=== PATIENT | female | born 1970 | race Caucasian/White ===

== ENCOUNTER → 2018-11-08 09:59 | Outpatient (CLI) | payer OTHER, SELFPAY ==
[2018-11-08 11:33] VITALS: BMI 37.1
== END ==
PROVIDERS: PCP Internal Medicine Adolescent Medicine; Visit Provider Internal Medicine Adolescent Medicine
DX: Z71.3 Dietary counseling and surveillance (principal); E11.9 Type 2 diabetes mellitus without complications
CPT/HCPCS: 97802

== ENCOUNTER → 2018-12-26 15:30 | Outpatient (CLI) | payer OTHER, SELFPAY ==
--- NOTE | 2018-12-26 15:37 | XR_ITS ---
PROCEDURE: XR FOOT WT BEARING RT 3V CLINICAL INDICATION: pain Follow-up post reduction dislocation COMPARISON: XR FOOT RT MIN 3V from 12/03/2018 XR FOOT RT 2V from 12/03/2018 FINDINGS: No fracture or dislocation. No lytic or blastic change. There is normal mineralization. The joint spaces are well-preserved. No significant degenerative/arthritic changes. No erosive changes evident. Other findings:There has been interval reduction of the 4th toe dislocation. No obvious fracture. Small calcific density is present along the neck of the talus unchanged IMPRESSION: No acute findings. Dictated by: Emiliano Barahona MD 12/26/2018 16:09 Electronically signed by Emiliano Barahona MD in [place] 12/26/2018 16:09
== END ==
PROVIDERS: PCP Internal Medicine Adolescent Medicine; Visit Provider Podiatrist
DX: S93.104A Unspecified dislocation of right toe(s), initial encounter (principal)
CPT/HCPCS: 73630

== ENCOUNTER → 2019-09-19 09:02 | Outpatient (CLI) | payer OTHER, SELFPAY ==
[2019-09-19 14:24] LABS: Chloride 102 mmol/L (98-107)
[2019-09-19 14:25] LABS: Potassium 4.6 mmoL/L (3.5-5.1); Sodium 138 mmol/L (136-145)
[2019-09-19 14:27] LABS: Alanine Aminotransferase 19 U/L (12-78); Anion Gap 12.6 mEq/L (5-15); Aspartate Amino Transferase 26 U/L (14-36); Blood Urea Nitrogen 16 mg/dl (7-17); Carbon Dioxide 28 mmol/L (22.0-30.0); Estimated Glomerular Filt Rate 77 ml/min (>60); GFR (African American) 93 ML/MIN (>60)
[2019-09-19 14:28] LABS: Albumin Level 3.6 g/dl (3.5-5.0); Albumin/Globulin Ratio 1.3 (1.1-1.8); Alkaline Phosphatase 127 U/L (38-126); Bilirubin,Total 0.6 mg/dl (0.2-1.3); Calcium 9.2 mg/dl (8.4-10.2); Chol/HDL Ratio 2.9 (1-3.5); Cholesterol 225 mg/dl (140-200); Globulin 2.7 g/dL (1.3-3.2); Glucose 122 mg/dl (74-100); HDL Cholesterol 77 mg/dl (40-60); Total Protein,Serum 6.3 g/dl (6.3-8.2); Triglycerides 133 mg/dl (30-150); VLDL Cholesterol 27 mg/dL (0-40)
[2019-09-19 14:39] LABS: Direct LDL Cholesterol 127.64 mg/dL (100-129)
[2019-09-19 14:57] LABS: Thyroid Stimulating Hormone 0.95 uIU/mL (0.465-4.68)
== END ==
PROVIDERS: Visit Provider Nurse Practitioner Family
DX: E11.69 Type 2 diabetes mellitus with other specified complication (principal); E78.5 Hyperlipidemia, unspecified; E03.9 Hypothyroidism, unspecified; Z79.84 Long term (current) use of oral hypoglycemic drugs
CPT/HCPCS: 36415; 80053; 80061; 83036; 84443

== ENCOUNTER → 2019-11-06 12:44 | Outpatient (CLI) | payer OTHER, SELFPAY ==
[2019-11-07 09:24] LABS: Covid-19 Nasal PCR Sendout Lex POSITIVE
== END ==
PROVIDERS: PCP Internal Medicine Adolescent Medicine; Visit Provider Internal Medicine Adolescent Medicine
DX: Z20.828 Contact with and (suspected) exposure to other viral communicable diseases (principal); U07.1 COVID-19
CPT/HCPCS: U0004

== ENCOUNTER → 2020-07-24 17:45 | Outpatient (CLI) | payer OTHER, SELFPAY ==
[2020-07-24 19:07] LABS: Basophils # 0.1 K/mm3 (0-0.2); Basophils % 0.6 % (0.1-2.0); Eosinophils # 0.2 K/mm3 (0.0-0.4); Eosinophils % 2.3 % (0.1-12.0); Hematocrit 35.9 % (37.0-47.0); Hemoglobin 12.1 g/dL (12.2-16.2); Lymphocytes # 3.4 K/mm3 (0.7-4.5); Lymphocytes % 33.1 % (10-50); Mean Corpuscular HGB Conc 33.6 g/dL (31.8-35.4); Mean Corpuscular Hemoglobin 29.9 pg (27.0-31.2); Mean Corpuscular Volume 88.9 fl (81-99); Mean Platelet Volume 9.4 fl (7.4-10.4); Monocytes # 0.5 K/mm3 (0.1-1.0); Platelet Count 470 K/mm3 (142-424); Red Blood Count 4.04 M/mm3 (4.20-5.40); White Blood Count 10.1 K/mm3 (4.8-10.8)
[2020-07-24 19:39] LABS: Chloride 101 mmol/L (98-107); Potassium 4.8 mmoL/L (3.5-5.1); Sodium 137 mmol/L (136-145)
[2020-07-24 19:41] LABS: Alanine Aminotransferase 16 U/L (12-78); Aspartate Amino Transferase 29 U/L (14-36); Blood Urea Nitrogen 13 mg/dl (7-17); Estimated Glomerular Filt Rate 90 ml/min (>60); GFR (African American) 109 ML/MIN (>60)
[2020-07-24 19:42] LABS: Albumin Level 3.9 g/dl (3.5-5.0); Albumin/Globulin Ratio 1.4 (1.1-1.8); Alkaline Phosphatase 134 U/L (38-126); Anion Gap 15.8 mEq/L (5-15); Bilirubin,Total 0.3 mg/dl (0.2-1.3); Carbon Dioxide 25 mmol/L (22.0-30.0); Globulin 2.8 g/dL (1.3-3.2); Glucose 194 mg/dl (74-100); Total Protein,Serum 6.7 g/dl (6.3-8.2)
[2020-07-26 16:10] LABS: EBV Ab VCA, IgM <36.0 U/mL (0.0-35.9); EBV Nuclear Antigen Ab, IgG <18.0 U/mL (0.0-17.9)
[2020-07-29 14:13] LABS: B. henselae IgG Negative titer (Neg:<1:320); B. henselae IgM Negative titer (Neg:<1:100); B. quintana IgG Negative titer (Neg:<1:320); B. quintana IgM Negative titer (Neg:<1:100)
== END ==
LOC: LAB.DROPOF 17:45
PROVIDERS: Visit Provider Internal Medicine Adolescent Medicine
DX: R61 Generalized hyperhidrosis (principal)
CPT/HCPCS: 80053; 85025; 86611; 86664; 86665; 86703; 87385; G0432

== ENCOUNTER → 2020-10-18 08:30 | Outpatient (CLI) | payer OTHER, SELFPAY ==
[2020-10-18 09:44] LABS: Hemoglobin A1C 8.4 % (4.0-6.0)
== END ==
PROVIDERS: Visit Provider Internal Medicine Adolescent Medicine
DX: E11.69 Type 2 diabetes mellitus with other specified complication (principal); Z79.84 Long term (current) use of oral hypoglycemic drugs
CPT/HCPCS: 83036

== ENCOUNTER → 2020-10-31 16:13 | Outpatient (CLI) | payer OTHER, SELFPAY | LOC: SL 16:15 | PROVIDERS: PCP Internal Medicine Adolescent Medicine; Visit Provider Internal Medicine Adolescent Medicine | DX: R40.0 Somnolence (principal); G47.30 Sleep apnea, unspecified | CPT/HCPCS: 95806 ==

== ENCOUNTER → 2020-11-13 14:46 | Outpatient (CLI) | payer OTHER, SELFPAY | PROVIDERS: PCP Internal Medicine Adolescent Medicine; Visit Provider Internal Medicine Adolescent Medicine | DX: Z71.3 Dietary counseling and surveillance (principal); E11.9 Type 2 diabetes mellitus without complications | CPT/HCPCS: 97802 ==

== ENCOUNTER → 2021-06-26 15:16 | Outpatient (CLI) | payer OTHER, SELFPAY ==
--- NOTE | 2021-06-26 15:21 | MM_ITS ---
PROCEDURE INFORMATION: Exam: MG Bilateral Screening 3D Mammography Exam date and time: 06/26/2021 3:33 PM Age: 50 years old Clinical indication: Screening examination TECHNIQUE: Imaging protocol: Bilateral Screening tomosynthesis and 2D mammography including computer-aided detection (CAD) when performed. COMPARISON: 1. MG DMSB DIG MAMM-SCREEN EWA W/CAD 08/21/2016 4:05 PM 2. MG DMDXUR DIG MAMM-DX UNI-RT 12/30/2015 12:48 PM 3. MG DMSB DIG MAMM-SCREEN EWA 06/07/2015 11:09 AM FINDINGS: MAMMOGRAPHY: Breast composition: There are scattered areas of fibroglandular density. Mass: None. Architectural distortion: No new or suspicious architectural distortion. Calcifications: No new or suspicious calcifications are present Asymmetric density: No new or suspicious asymmetric density is present Skin thickening: None. Axillary adenopathy: None. IMPRESSION: No mammographic evidence of malignancy. Recommend annual screening mammography unless otherwise clinically indicated. ASSESSMENT: BI-RADS category 1: Negative
== END ==
PROVIDERS: PCP Internal Medicine Adolescent Medicine; Visit Provider Nurse Practitioner Family
DX: Z12.31 Encounter for screening mammogram for malignant neoplasm of breast (principal)
CPT/HCPCS: 77063; 77067

== ENCOUNTER → 2021-07-29 15:16 | Outpatient (CLI) | payer OTHER, SELFPAY ==
[2021-07-29 16:31] LABS: Urine Pregnancy, HCG Qual. Negative (Negative)
== END ==
LOC: LAB 15:16
PROVIDERS: PCP Internal Medicine Adolescent Medicine; Visit Provider Internal Medicine Gastroenterology
DX: Z01.818 Encounter for other preprocedural examination (principal); Z20.822 Contact with and (suspected) exposure to COVID-19
CPT/HCPCS: 81025; C9803; U0003; U0005

== ENCOUNTER → 2021-09-30 14:34 | Outpatient (CLI) | payer OTHER, SELFPAY ==
--- NOTE | 2021-09-30 14:34 | US_ITS ---
FINAL REPORT CLINICAL HISTORY: pelvic pain right side rule out cyst FINDINGS: Transvaginal sonographic images of the pelvis were obtained. The uterus measures 8.3 x 4.1 x 3.7 cm. Endometrium measures 0.47 cm. The right ovary measures 2.7 x 1.5 x 1.5 cm. The left ovary measures 3.8 x 3.0 x 2.7 cm. There is a 2.8 x 2.1 cm left ovarian cyst. The right ovary is unremarkable. There is a small nabothian cyst at the cervix. IMPRESSION: Left ovarian cyst. Reviewed, Interpreted and Dictated by Braulio Esquivel MD Transcribed by Petra Colon Authenticated and [facility]
== END ==
LOC: RAD 14:34
PROVIDERS: PCP Internal Medicine Adolescent Medicine; Visit Provider Nurse Practitioner Obstetrics & Gynecology
DX: R10.2 Pelvic and perineal pain (principal)
CPT/HCPCS: 76830

== ENCOUNTER → 2022-06-27 08:28 | Outpatient (CLI) | payer OTHER, SELFPAY ==
[2022-06-27 09:07] LABS: Hemoglobin A1C 6.7 % (4.0-6.0)
[2022-06-27 09:10] LABS: Alanine Aminotransferase 20 U/L (12-78); Albumin Level 3.9 g/dl (3.5-5.0); Albumin/Globulin Ratio 1.4 (1.1-1.8); Alkaline Phosphatase 118 U/L (38-126); Anion Gap 14.3 mEq/L (5-15); Aspartate Amino Transferase 24 U/L (14-36); Bilirubin,Total 0.4 mg/dl (0.2-1.3); Blood Urea Nitrogen 14 mg/dl (7-17); Calcium 8.8 mg/dl (8.4-10.2); Carbon Dioxide 27 mmol/L (22.0-30.0); Chloride 100 mmol/L (98-107); Chol/HDL Ratio 1.6 (1-3.5); Cholesterol 135 mg/dl (140-200); Estimated Glomerular Filt Rate 76 ml/min (>60); GFR (African American) 92 ML/MIN (>60); Globulin 2.7 g/dL (1.3-3.2); Glucose 134 mg/dl (74-100); HDL Cholesterol 84 mg/dl (40-60); Potassium 4.3 mmoL/L (3.5-5.1); Sodium 137 mmol/L (136-145); Total Protein,Serum 6.6 g/dl (6.3-8.2); Triglycerides 93 mg/dl (30-150); VLDL Cholesterol 19 mg/dL (0-40)
[2022-06-27 09:20] LABS: Direct LDL Cholesterol 55.79 mg/dL (100-129)
[2022-06-27 09:40] LABS: Thyroid Stimulating Hormone 1.26 uIU/mL (0.465-4.68)
== END ==
LOC: LAB 08:28
PROVIDERS: PCP Internal Medicine Adolescent Medicine; Visit Provider Internal Medicine Adolescent Medicine
DX: E03.9 Hypothyroidism, unspecified (principal); E11.69 Type 2 diabetes mellitus with other specified complication; Z79.84 Long term (current) use of oral hypoglycemic drugs
CPT/HCPCS: 36415; 80053; 80061; 83036; 84443

== ENCOUNTER → 2022-07-03 13:16 | Outpatient (CLI) | payer OTHER, SELFPAY ==
--- NOTE | 2022-07-03 13:16 | MM_ITS ---
PROCEDURE INFORMATION: Exam: MG Bilateral Screening 3D Mammography Exam date and time: 07/03/2022 1:06 PM Age: 51 years old Clinical indication: Screening. Her mother had breast cancer at age 63. TECHNIQUE: Imaging protocol: Bilateral Screening tomosynthesis and 2D mammography including computer-aided detection (CAD) when performed. COMPARISON: 1. MG MM DIG SCREENING MAMM BI W/CAD 06/26/2021 3:33 PM 2. MG DMSB DIG MAMM-SCREEN EWA W/CAD 08/21/2016 4:05 PM 3. MG DMDXUR DIG MAMM-DX UNI-RT 12/30/2015 12:48 PM 4. MG DMSB DIG MAMM-SCREEN EWA 06/07/2015 11:09 AM FINDINGS: MAMMOGRAPHY: Breast composition: There are scattered areas of fibroglandular density. Mass: No suspicious mass. Architectural distortion: None. Calcifications: No suspicious calcifications. Asymmetric density: None. Skin thickening: None. Axillary adenopathy: None. IMPRESSION: No mammographic evidence of malignancy. Annual screening is recommended unless otherwise clinically indicated. ASSESSMENT: BI-RADS Category 1: Negative
== END ==
PROVIDERS: PCP Internal Medicine Adolescent Medicine; Visit Provider Nurse Practitioner Obstetrics & Gynecology
DX: Z12.31 Encounter for screening mammogram for malignant neoplasm of breast (principal)
CPT/HCPCS: 77063; 77067

== ENCOUNTER 2022-08-04 15:00 | Outpatient (RCR) | payer OTHER, SELFPAY ==
--- NOTE | 2022-07-09 16:46 | HMH.PTOPEV ---
PT Outpatient Evaluation Rehab PT Outpatient Evaluation Start: 07/09/22 15:33 Freq: Status: Active Protocol: Document 07/09/22 15:36 PDESEROUX (Rec: 07/09/22 16:46 [email or web address] [id number]) E-signed By Gael Barboza, PT Outpatient Therapy Subjective History Subjective History Pt. is a 51 year old female whom presents to [facility] in [place] for the initial evaluation this date( 07/09/22) w/ c/o subacute and constant R-sided lumbar and RLE P!, numbness/tingling, and weakness of insidious onset for 3 months. Pt. reports having a chronic history of RLE hip P! secondary to prior history of increased osteoarthritis from previous MRI per pt. report. However, pt. reports symptoms have worsened in the hip, but also refer to the 2nd digit and lumbar spine. 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 Pt. also describes symptoms as a cold or wet sensation. Pt. reports saddle paresthesia, but denies bowel/ bladder dysfunction. Pt. reported telling MD about current saddle paresthesia. Pt . denies having any recent diagnostic imaging nor injections for current complaint. Current medication list includes Levothyroxine, Metformin, Prozac, Jardiance, Crestor, and Victoza. PMH includes history of RLE hip OA , Hypothyroidism, DM-II. Chief Complaint Pain,Spasms,Gives out/Unstable ,Paresthesia,Weakness Symptom Type Ache,Dull,Burning,Numbness, Tingling,Shooting Symptoms Relieved By Rest/Positioning,Ice, Prescription Meds Symptoms Aggravated By Sitting,Bending/Stooping,
== END 2022-09-04 10:30 | disposition home or self-care (01) ==
LOC: PT 15:00
PROVIDERS: PCP Internal Medicine Adolescent Medicine; Visit Provider Internal Medicine Adolescent Medicine
DX: M54.41 Lumbago with sciatica, right side (principal)
CPT/HCPCS: 97010; 97012; 97014; 97110; 97140; 97163; G0283

== ENCOUNTER 2022-11-01 09:59 | Emergency (ER) | payer OTHER, SELFPAY ==
[2022-11-01 10:00] VITALS: BP 145/77; PULSE 7; RESP 16; TEMP 36.6; O2SAT 100; BMI 35.9
--- NOTE | 2022-11-01 10:16 | CT_ITS ---
PROCEDURE INFORMATION: Exam: CT Head Without Contrast Exam date and time: 11/01/2022 10:31 AM Age: 51 years old Clinical indication: Injury or trauma; Fall; Concussion/head injury; With loss of consciousness; Loss of consciousness for 30 minutes or less; Patient HX: PT fell down steps hit brick wall on left side of forhead. PT lost consciousness, now experiencing dizziness, nausea; Additional info: Fall, head injury TECHNIQUE: Imaging protocol: Computed tomography of the head without contrast. Radiation optimization: All CT scans at this facility use at least one of these dose optimization techniques: automated exposure control; mA and/or kV adjustment per patient size (includes targeted exams where dose is matched to clinical indication); or iterative reconstruction. REPORTING DATA: Count of CT and Cardiac NM exams in prior 12 months: This patient has received 0 known CTs and 0 known cardiac nuclear medicine studies in the 12 months prior to the current study. COMPARISON: No relevant prior studies available. FINDINGS: Brain: No hemorrhage. Unremarkable white matter. No mass effect. Cerebral ventricles: No ventriculomegaly. Paranasal sinuses: There is mucoperiosteal reaction involving the right maxillary sinus. Mastoid air cells: Visualized mastoid air cells are well aerated. Bones/joints: No acute fracture. Soft tissues: There is a small left frontal soft tissue contusion. IMPRESSION: No acute intracranial abnormality.
--- NOTE | 2022-11-01 10:17 | HMH.EDGENADL ---
Discharge Plan Disposition Patient Disposition: Home, Self-Care Prescriptions Prescriptions: New ondansetron 4 mg tablet,disintegrating 4 mg PO Q6H PRN (Reason: nausea and vomiting) 5 Days Qty: 20 0RF No Action rosuvastatin 20 mg tablet 20 mg PO DAILY levothyroxine 75 mcg tablet 75 mcg PO DAILY 60 Days Qty: 60 Patient Comments: TAKE 1 TABLET BY MOUTH EVERY DAY metformin 500 mg tablet 500 mg PO methylsulfonylmethane 1,000 mg capsule 1,000 mg PO BID methylprednisolone 4 mg tablets,dose pack 4 mg PO PER PKG DIR Qty: 21 0RF Lo Loestrin Fe 1 mg-10 mcg (24)/10 mcg (2) tablet 1 tab PO DAILY Qty: 28 11RF fluoxetine 40 MG capsule 40 mg PO DAILY liraglutide 0.6 MG/0.1 ML pen injector 0.12 mg SQ DAILY empagliflozin 10 MG tablet 10 mg PO DAILY Referrals Follow up/Referrals: Elias Nolasco MD [Primary Care Provider] - See instructions Activity Restrictions/Add. Instructions Additional Instructions/Restrictions: No evidence of an intracranial injury that would require any type of intervention your CAT scan was normal. Please expect normal postconcussive symptoms which could include nausea vomiting headache difficulty concentration and some amnesia. Take Tylenol as needed for your symptoms a prescription of Zofran has been given to you as well. Regarding return to work I would take 24 to 48 hours off of no significant stimulation followed by returning to minimal activity and he can return to full activity only moving to each neck step after being fully asymptomatic this could take several weeks. Additionally there is such thing is postconcussive syndrome which is where symptoms could last even longer please follow-up the primary care doctor within a few days to continue discuss when to return to work. Clinical Impressions Clinical Impression: Concussion Discharge ED Provider: John Simon General Adult HPI General Chief complaint: Fall Stated complaint: AO 8:30 hit head villarreal Time Seen by Provider: 11/01/22 10:11 Mode of Arrival: Ambulatory Limitations: No Limitations Description of Symptoms (Recalled from ER Triage Doc. by RN): pt reports fall this morning approx 0830 down approx 4 steps. Pt reports hits her head on door frame. Pt reports +LOC. Bruising and raised area to L side of forehead with abrasion noted. Pt reports headache, nausea and some blurry vision. History of Present Illness HPI narrative: Patient is a 51-year-old female here with a head injury. She states that she was walking down the stairs and felt herself falling but the next thing she remembers she was on the ground her dog was licking her head. Therefore there is a positive loss of consciousness. She does not recall whether not she was having any lightheadedness shortness of breath or any other preceding symptoms but does not believe she was. She now feels back to baseline other than a head injury and feeling little bit funny. She has no history of recent concussions. She is not on any anticoagulants or any antiplatelet agents. She denies any neck pain chest abdomen pelvis injuries or any long bone injuries. Related Data Home Medications Medication Instructions Recorded Confirmed levothyroxine 75 mcg tablet 75 mcg PO DAILY thyroid 60 days 05/04/18 04/13/22 #60 tabs rosuvastatin 20 mg tablet 20 mg PO DAILY Cholesterol 09/19/19 04/13/22 empagliflozin 10 mg tablet 10 mg PO DAILY Diabetes 07/29/21 04/13/22 fluoxetine 40 mg capsule 40 mg PO DAILY Anxiety 07/29/21 04/13/22 liraglutide 0.6 mg/0.1 mL (18 mg/3 0.12 mg SQ DAILY Diabetes 07/29/21 04/13/22 mL) subcutaneous pen injector metformin 500 mg tablet 500 mg PO 02/24/22 04/13/22 methylsulfonylmethane 1,000 mg 1,000 mg PO BID 02/24/22 04/13/22 capsule Previous Rx's Medication Instructions Recorded norethindrone 1 mg-ethinyl 1 tab PO DAILY #28 tabs 11/26/21 estradiol 10 mcg (24)-iron 10 mcg(2) tablet ([place]
--- NOTE | 2022-11-01 11:07 | PC.NURSE ---
Dr. Simon at [facility] for pt eval
[2022-11-01 11:16] VITALS: BP 133/70; PULSE 67; RESP 17; TEMP 36.6; O2SAT 98
== END 2022-11-01 11:19 | disposition home or self-care (01) ==
PROVIDERS: Emergency Provider Student in an Organized Health Care Education/Training Program; PCP Internal Medicine Adolescent Medicine
DX: S06.0X9A Concussion with loss of consciousness of unspecified duration, initial encounter (principal); S00.93XA Contusion of unspecified part of head, initial encounter; W10.8XXA Fall (on) (from) other stairs and steps, initial encounter
CPT/HCPCS: 70450; 99284

== ENCOUNTER 2023-06-11 21:26 | Emergency (ER) | payer BC, SELFPAY ==
[2023-06-11 21:33] VITALS: BP 161/99; PULSE 84; RESP 16; TEMP 36.7; O2SAT 98; BMI 35.2
--- NOTE | 2023-06-11 21:43 | HMH.EDGENADL ---
Discharge Plan Disposition Patient Disposition: Home, Self-Care Prescriptions Prescriptions: New amoxicillin-pot clavulanate 875-125 mg tablet 1 tab PO BID Qty: 20 0RF No Action rosuvastatin 20 mg tablet 20 mg PO DAILY levothyroxine 75 mcg tablet 75 mcg PO DAILY 60 Days Qty: 60 Patient Comments: TAKE 1 TABLET BY MOUTH EVERY DAY metformin 500 mg tablet 500 mg PO BID methylsulfonylmethane 1,000 mg capsule 1,000 mg PO BID methylprednisolone 4 mg tablets,dose pack 4 mg PO PER PKG DIR Qty: 21 0RF Lo Loestrin Fe 1 mg-10 mcg (24)/10 mcg (2) tablet See Rx Instructions .ROUTE .COMPLEX Qty: 28 10RF Dose Instruction: TAKE 1 TABLET ORALLY DAILY Rx Instructions: TAKE 1 TABLET ORALLY DAILY ondansetron 4 mg tablet,disintegrating 4 mg PO Q6H PRN (Reason: nausea and vomiting) 5 Days Qty: 20 0RF fluoxetine 40 MG capsule 40 mg PO DAILY liraglutide 0.6 MG/0.1 ML pen injector 0.12 mg SQ DAILY empagliflozin 10 MG tablet 10 mg PO DAILY Referrals Follow up/Referrals: Elias Nolasco MD [Primary Care Provider] - See instructions Activity Restrictions/Add. Instructions Additional Instructions/Restrictions: Call your family doctor to establish care for this visit to the emergency department and schedule follow-up within 48 hours to ensure improvement. If you have any worsening of your condition or any other concerning signs or symptoms, return to the emergency department or your primary care doctor for further evaluation. Augmentin twice daily for 10 days Clinical Impressions Clinical Impression: Dog bite Instructions Patient Instructions: Animal Bites Discharge ED Provider: Avinash Fountain General Adult HPI General Chief complaint: Animal Bite Stated complaint: AO 06/09, dog bite on right hand Time Seen by Provider: 06/11/23 21:31 Mode of Arrival: Family Vehicle Source of Information: Patient Limitations: No Limitations Description of Symptoms (Recalled from ER Triage Doc. by RN): 52 yo female presents with CC of dog bite. States she was bit by her dog yesterday and result was one puncture wound to inner palm. Cleaned with soap and water, but noticed redness around area and extending into wrist area. Complains of soreness, but otherwise not painful. No purulent drainage present. Slight edema to area. History of Present Illness HPI narrative: Please note that above description of symptoms, in this electronic medical record under categorization of recalled from ER triage doctor by RN are reflective of an initial nursing assessment, however, is not reflective of my full history and physical exam that was personally taken and clarified. Consequentially, this preceding description of symptoms, which may include the patient's categorized chief complaint in the EMR, do not reflect my personal clinical impression, and the ultimate description of history of present illness and patient stated complaints should be deferred to this section of the note. Unless stated otherwise or congruent with this section of the note, additional signs, symptoms, or incongruence should be interpreted as inaccurate with my clinical impression. Related Data Home Medications Medication Instructions Recorded Confirmed levothyroxine 75 mcg tablet 75 mcg PO DAILY thyroid 60 days 05/04/18 06/11/23 #60 tabs rosuvastatin 20 mg tablet 20 mg PO DAILY Cholesterol 09/19/19 06/11/23 empagliflozin 10 mg tablet 10 mg PO DAILY Diabetes 07/29/21 06/11/23 fluoxetine 40 mg capsule 40 mg PO DAILY Anxiety 07/29/21 06/11/23 liraglutide 0.6 mg/0.1 mL (18 mg/3 0.12 mg SQ DAILY Diabetes 07/29/21 06/11/23 mL) subcutaneous pen injector metformin 500 mg tablet 500 mg PO BID 02/24/22 06/11/23 methylsulfonylmethane 1,000 mg 1,000 mg PO BID 02/24/22 06/11/23 capsule Previous Rx's Medication Instructions Recorded methylprednisolone 4 mg tablets in 4 mg PO PER PKG DIR Pain, swelling 02/24/22 a dose pack #21 tabs ondansetron 4 mg disintegrating 4 mg PO Q6H PRN nausea and 11/01/22 tablet vomiting 5 days #20 tabs norethindrone 1 mg-ethinyl See Rx Instructions .Route 11/19/22 estradiol 10 mcg (24)-iron 10 .COMPLEX #28 tabs mcg(2) tablet (Lo Loestrin Fe) amoxicillin 875 mg-potassium 1 tab PO BID #20 tabs 06/11/23 clavulanate 125 mg tablet Allergies Allergy/AdvReac Type Severity Reaction Status Date / Time adhesive tape [facility]13[facility]22 13[facility] Disclaimer: The information contained in this section may have been updated after the patient was seen, as this information can be updated by other users. Social History Smoking Status: Unknown if ever smoked second hand exposure: No alcohol intake: current alcohol intake frequency: holidays/special occasions only substance use type: denies use current occupational status: employed Travel in the last 8 weeks: None household members: family housing: house current occupation: Technical Services Assistant current occupational exposures/hazards: No caffeine: Yes ROS Obtained: Yes All systems reviewed & no additional complaints except as documented Physical Exam General General appearance: alert and in no apparent distress Head Head exam: atraumatic and normocephalic Eye Eye exam: Present normal appearance, PERRL and EOMI ENT ENT exam: Present mucous membranes moist Neck Neck exam: Present normal inspection, full ROM and trachea midline Respiratory Respiratory exam: Absent respiratory distress, wheezes, stridor, accessory muscle use or prolonged expiratory phase Cardiovascular Cardiovascular exam: Present normal rhythm Abdominal Exam Abdominal exam: Present soft; Absent distention, tenderness, guarding, rebound or rigidity Extremities Exam Extremities exam: Present other (Puncture wound right thenar eminence with erythema spreading circumferentially and linearly up ventral aspect of right upper extremity); Absent edema Neurological Exam Neurological exam: Present alert, oriented X3, CN II-XII intact and normal gait; Absent motor sensory deficit Skin Skin exam: Present warm and dry; Absent diaphoresis or erythema Medical Decision Making Medical Records Medical records reviewed: Yes I reviewed the patient's medical records. Shan Inquiry Pt receiving controlled substance: No Shan was queried for this patient: No Vital Signs: 06/11/23 21:33 06/11/23 21:47 Temperature 98.1 F 98.0 F Temperature Source Oral Oral Pulse Rate 89 Pulse Rate [Right Brachial] 84 Respiratory Rate 16 16 Blood Pressure 169/99 H Blood Pressure [right wrist] 161/99 H Blood Pressure Mean [right wrist] 119 Blood Pressure Source Automatic Cuff Blood Pressure Source [right wrist] Automatic Cuff Blood Pressure Position Sitting Blood Pressure Position [right wrist] Sitting 02 Sat by Pulse Oximetry 98 Oxygen Delivery Method Room Air Room Air Orders (Tests/Meds): ED MEDICATIONS Discontinued Medications Generic Name Dose Route Start Last Admin Trade Name Freq PRN Reason Stop Dose Admin Amoxicillin/Clavulanate Potassium 1 each 06/11/23 21:42 06/11/23 21:44 Amoxicillin/Clavulanate Potassium 875/125mg Tablet PO 06/11/23 21:43 1 each ONCE ONE Administration Medical Decision Narrative: 52-year-old female no relevant medical history presenting with dog bite to thenar eminence right upper extremity. Happened yesterday. She washed it out really well, did not have complications initially, but is now having redness streaking around the area and upper arm. No fevers or chills, or any other systemic signs or symptoms. Last tetanus was in 2021. History was obtained via conversation with patient. On arrival, patient hemodynamically stable, alert, oriented x4, appropriate, GCS 15, moving all extremities spontaneously, pupils equal and reactive to light. Full physical exam performed and significant for thenar eminence erythema with puncture wound. She does have erythema extending up right upper extremity as well. Range of motion intact and nonpainful. Differential includes cellulitis, lymphangitis, bacteremia, among others Patient was given Augmentin for symptomatic management and correction of underlying abnormalities. No foreign body palpated, x-ray of right upper extremity was considered, but not deemed necessary at this time. Because patient well-appearing with no systemic signs or symptoms, deemed appropriate for outpatient management with Augmentin with close return precautions. Because patient at baseline without signs or symptoms of clinical decompensation, deemed appropriate for discharge. Results were relayed to patient who voiced understanding and were agreeable to outpatient management and follow up. I discussed my clinical impression with patient and answered all questions. At this time, the evidence for any other entities in the differential is insufficient to warrant any further testing or ED observation. This was explained as well. Advisory was given that persistent or worsening symptoms require further evaluation. I confirmed the understanding of this discussion. Critical Care Critical Care Time Critical Care Time: No
[2023-06-11] MEDS: AMOXICILLIN/CLAVULANATE POTASSIUM 875/125MG TABLET 1 EACH PO (21:44)
[2023-06-11 21:47] VITALS: BP 169/99; PULSE 89; RESP 16; TEMP 36.7; O2SAT 98
== END 2023-06-11 21:51 | disposition home or self-care (01) ==
PROVIDERS: Emergency Provider Emergency Medicine; PCP Internal Medicine Adolescent Medicine
DX: S61.431A Puncture wound without foreign body of right hand, initial encounter (principal); L53.9 Erythematous condition, unspecified; W54.0XXA Bitten by dog, initial encounter
CPT/HCPCS: 99283

== ENCOUNTER 2023-07-22 12:49 | Outpatient (CLI) | payer BC, SELFPAY ==
--- NOTE | 2023-07-22 12:49 | MM_ITS ---
PROCEDURE INFORMATION: Exam: MG Bilateral Screening 3D Mammography Exam date and time: 07/22/2023 12:51 PM Age: 52 years old Clinical indication: Screening examination TECHNIQUE: Imaging protocol: Bilateral Screening tomosynthesis and 2D mammography including computer-aided detection (CAD) when performed. COMPARISON: 1. MG MM DIG SCREENING MAMM BI W/CAD 07/03/2022 1:06 PM 2. MG MM DIG SCREENING MAMM BI W/CAD 06/26/2021 3:33 PM FINDINGS: MAMMOGRAPHY: Breast composition: There are scattered areas of fibroglandular density. Mass: None. Architectural distortion: None. Calcifications: No suspicious calcifications. Asymmetric density: None. Skin thickening: None. Axillary adenopathy: None. IMPRESSION: No mammographic evidence of malignancy. Annual screening is recommended unless otherwise clinically indicated. ASSESSMENT: BI-RADS Category 1: Negative
== END 2023-07-22 23:59 | disposition home or self-care (01) ==
LOC: RAD 12:49
PROVIDERS: PCP Internal Medicine Adolescent Medicine; Visit Provider Nurse Practitioner Obstetrics & Gynecology
DX: Z12.31 Encounter for screening mammogram for malignant neoplasm of breast (principal)
CPT/HCPCS: 77063; 77067

== ENCOUNTER 2023-10-04 14:00 | Outpatient (RCR) | payer OTHER, SELFPAY ==
--- NOTE | 2023-08-03 17:14 | HMH.PTOPEV ---
PT Outpatient Evaluation Rehab PT Outpatient Evaluation Start: 08/03/23 16:02 Freq: Status: Active Protocol: Document 08/03/23 16:03 PDESEROUX (Rec: 08/03/23 17:14 [email or web address] [id number]) E-signed By Gael Barboza, PT Outpatient Therapy Subjective History Subjective History Pt. is a 52 year old female who presents to [facility] in [place] for the initial evaluation this date(08/03/23) w/ c/o subacute and constant RUE shldr. P!, stiffness, and weakness of traumatic onset in May 2023 while at work that has progressively been getting worse in the last couple of weeks. Pt. reports she slipped while descending the steps secondary to the rain while getting off of the back of the ambulance and reached out to grab the cargo net to keep herself upright when it jerked her shoulder back. Pt. reports she rested her shoulder best she could where it got a little better, but states symptoms have worsened in the last few weeks because she's been doing more at work. Pt. 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 Pt. denies having any recent diagnostic imaging nor injections for current complaint. Pt. reports having no symptom relief w/ prescribed Voltaren. Pt. reports having symptom relief w/ rest. Pt. reports having difficulty reaching out, donning/doffing shirt, and lifting secondary to an increase in RUE shldr. P!. Current medications include Voltaren, Metformin, Jardiance , and Mounjaro. PMH includes DM-II and Hypothyroidism. New diagnosis of cancer in past 12 No months? Chief Complaint Pain,Spasms,Stiff,Gives out/ Unstable,Weakness Symptom Type Ache,Sharp,Dull,Stabbing, Burning,Shooting,Other Symptoms Relieved By Rest/Positioning,Ice,Brace/ Support Symptoms Aggravated By Physical Activity,Lifting Prior Functional Limitations None Current Functional Limitations Reaching,Lifting,Housework, Dressing,Desk Work/Reading, Driving,Sleeping,Recreation Activity Symptom Description Constant but Variable,Activity Dependent Level of pain today (0-10) 2 Pain scale - at its best (0-10) 1 Pain scale - at its worst (0-10) 6 Shoulder/Elbow Eval Shoulder Objective Measurements Palpation Tenderness tenderness shoulder exam standard right tenderness over the bicipital tendon right shoulder exam standard tenderness over the SA bursa shoulder right exam standard Shoulder Palpation Findings Tenderness Shoulder Palpation Overall Comment grade 4 +TTP above, ER's/IR's/ greater tubercle/lesser tubercle Posture Shoulder Posture Sitting Position (R) Rounded,(R) Forward Shoulder Posture Standing Position (R) Rounded,(R) Forward Scapula Posture Sitting Position (R) Protracted Scapular Posture Standing Position (R) Protracted Flexibilty Deficits Latissmus Dorsi Muscle Length (R) Severe Tightness Pectoralis Minor Muscle Length (R) Severe Tightness Pectoralis Major Muscle Length (R) Severe Tightness Shoulder External Rotators Muscle Length (R) Severe Tightness Shoulder Internal Rotators Muscle Length (R) Severe Tightness Supraspinatus Muscle Length (R) Severe Tightness Teres Major Muscle Length (R) Severe Tightness Upper Trapezius Muscle Length (R) Severe Tightness Levaetor Scapulae Muscle Length (R) Severe Tightness Shoulder ROM Right Shoulder ROM Limitations Soft Tissue Tightness,Muscle Weakness,Pain Shoulder Abduction Active Range of 83 Motion (degrees) Shoulder Abduction Passive Range of 101 Motion (degrees) Shoulder Flexion Active Range of Motion 97 (degrees) Query Text: Shoulder Flexion Passive Range of Motion 103 (degrees) Shoulder External Rotation Active Range 27 of Motion (degrees) Shoulder External Rotation Passive Range 33 of Motion (degrees) Shoulder Internal Rotation Active Range 55 of Motion (degrees) Shoulder Internal Rotation Passive Range 61 of Motion (degrees) Shoulder Extension Active Range of 55 Motion (degrees) pain with active ROM shoulder exam right standard pain with passive ROM shoulder exam right standard decreased ROM shoulder exam standard right Shoulder MMT Shoulder Abduction Strength Grade 3+ Fair+ Shoulder Extension Strength Grade 4 Good Shoulder Flexion Strength Grade 3+ Fair+ Shoulder External Rotation Strength 3+ Fair+ Grade Shoulder Internal Rotation Strength 4- Good- Grade Shoulder Strength Patient Testing Sitting Position Shoulder Muscle Tone Shoulder Flexor Muscle Tone Description Severe Hypertonicity Shoulder Extensors Muscle Tone Severe Hypertonicity Description Shoulder Lateral Rotator Muscle Tone Severe Hypertonicity Description Shoulder Special Tests Shoulder Drop Arm Test Positive Right Shoulder Anterior Apprehension Test Positive Right Shoulder Speed's Sign Test Positive Right Elbow Objective Measurements Accessory Movements Right Shoulder Girdle Accessory Movements that Glenohumeral [place], Elicit Symptoms Glenohumeral [place], Glenohumeral Inf [place] Outpatient Therapy Assessment Impairments Problems/Impairmments Palpation Tenderness,Impaired Range of Motion,Impaired Strength,Impaired Driving, Impaired Lifting,Impaired Dressing,Impaired Shower/ Bathing,Impaired Household Care,Impaired Recreational Activities,Impaired Work Activities,Impaired Desk/ Computer Activities,Subjective C/O Pain,Impaired Self Care/ Self Management Prognosis Rehab Potential Good Comment w/ HEP compliancy Clinical Impression Consistent with Diagnosis Yes Consistent with RUE shldr. RC strain Short Term Goals Number of Weeks 2 Decreased Palpation Tenderness Yes: grade 1-2 +TTP to TTP assessment above Decrease Subjective C/O Pain Yes: worse:06/17 Patient to be Ind w/ HEP Yes Shelter Goals Number of Weeks 4-6 Decreased Palpation Tenderness Yes: grade 1 +TTP to TTP assessment above Increase Range of Motion Yes: RUE shldr. A/PROM WNL grossly Increase Strength Yes: 4+ to 06/12 RUE shldr. MMT scores grossly Increase Ability to Drive/Ride in Car Yes: Pt. will be able to operate steering wheel/seat belt w/ RUE w/o difficulty Improve Ability to Dress Self Yes: Pt. will be able to don/ doff shirt w/o difficulty Improve Ability to Shower/Bathe Self Yes Improve Tolerance to Work Activities Yes: Pt. will return to full occupational duty responsibility w/o difficulty Improve Tolerance to Desk/Computer Yes: Pt. will be able to write Activities w/ RUE w/o difficulty Improve Quick Dash Score Yes Decrease Subjective C/O Pain Yes: worse:-03/20 Patient to be Ind w/ Advanced HEP Yes Outpatient Therapy Plan of Care Treatment Plan May Include Therapeutic Exercise Including Home Yes Exercise Program Manual Therapy Techniques Yes Neuromuscular Re-education Yes Therapeutic Activities to Return to Yes Previous Functional/Work Level ADL/Self Care Education Yes Dry Needling Yes Thermal Modalities Yes Electrical Stimulation Yes Ultrasound/Phonophoresis Yes Iontophoresis Yes Vasopneumatic Compression Pump Yes Massage Yes Eval/Re-Eval Yes Frequency Times per week 2-3 Duration Number of Weeks 4-6 Addendums This patient is a candidate for social No or vocational rehab? Patient/Guardian verbally acknowledges Yes understanding of treatment program and consents to further treatment? Patient/Guardian verbally acknowledges Yes understanding of diagnosis, prognosis and goals for treatment? Eval Complexity PT Charges 50091 - Low Complexity PHYSICIAN CERTIFICATION: I certify the specified therapy services for Lucía Lenz [place] are required, authorized, and reviewed every 30 days.
== END 2023-10-06 08:50 | disposition home or self-care (01) ==
LOC: PT 14:00
PROVIDERS: Visit Provider Internal Medicine Adolescent Medicine
DX: M75.21 Bicipital tendinitis, right shoulder (principal)
CPT/HCPCS: 97010; 97014; 97110; 97140; 97163; 97164; 97530; G0283

== ENCOUNTER 2024-02-29 08:58 | Outpatient (CLI) | payer BC, SELFPAY ==
[2024-02-29 09:37] LABS: Basophils # 0.1 K/mm3 (0-0.2); Basophils % 1.5 % (0.1-2.0); Eosinophils # 0.2 K/mm3 (0.0-0.4); Eosinophils % 2.3 % (0.1-12.0); Hematocrit 39.9 % (37.0-47.0); Hemoglobin 13.2 g/dL (12.2-16.2); Lymphocytes # 3.2 K/mm3 (0.7-4.5); Mean Corpuscular HGB Conc 33.1 g/dL (31.8-35.4); Mean Corpuscular Hemoglobin 31.1 pg (27.0-31.2); Mean Corpuscular Volume 94.1 fl (81-99); Monocytes # 0.5 K/mm3 (0.1-1.0); Monocytes % 6.7 % (1.7-9.3); Neutrophils # 3.3 K/mm3 (1.8-7.8); Neutrophils % 45.2 % (37.0-80.0); Platelet Count 394 K/mm3 (142-424); Red Blood Count 4.24 M/mm3 (4.20-5.40); White Blood Count 7.3 K/mm3 (4.8-10.8)
[2024-02-29 09:48] LABS: Albumin Level 3.8 g/dl (3.5-5.0); Chloride 105 mmol/L (98-107); Potassium 4.1 mmoL/L (3.5-5.1); Sodium 135 mmol/L (136-145)
[2024-02-29 09:50] LABS: Alanine Aminotransferase 19 U/L (12-78); Anion Gap 9.1 mEq/L (5-15); Aspartate Amino Transferase 21 U/L (14-36); Blood Urea Nitrogen 13 mg/dl (7-17); Carbon Dioxide 25 mmol/L (22.0-30.0); Estimated Glomerular Filt Rate 66 ml/min (>60); GFR (African American) 80 ML/MIN (>60)
[2024-02-29 09:51] LABS: Albumin/Globulin Ratio 1.4 (1.1-1.8); Alkaline Phosphatase 108 U/L (38-126); Bilirubin,Total 0.4 mg/dl (0.2-1.3); Calcium 9.1 mg/dl (8.4-10.2); Chol/HDL Ratio 4.1 (1-3.5); Cholesterol 236 mg/dl (140-200); Globulin 2.7 g/dL (1.3-3.2); Glucose 103 mg/dl (74-100); HDL Cholesterol 58 mg/dl (40-60); Total Protein,Serum 6.5 g/dl (6.3-8.2); Triglycerides 122 mg/dl (30-150); VLDL Cholesterol 24 mg/dL (0-40)
[2024-02-29 09:54] LABS: Creatinine,Urine Random 136 mg/dL (Not Estab.); Microalbumin < 6.000 mg/L (0-16.7)
[2024-02-29 10:08] LABS: 25-OH Vitamin D, Total 38.3 ng/mL (30-100)
[2024-02-29 10:22] LABS: Thyroid Stimulating Hormone 1.41 uIU/mL (0.465-4.68)
[2024-02-29 11:14] LABS: Direct LDL Cholesterol 146.83 mg/dL (100-129)
[2024-02-29 11:54] LABS: Vitamin B12 900 pg/mL (239-931)
== END 2024-02-29 23:59 | disposition home or self-care (01) ==
LOC: LAB 09:00
PROVIDERS: PCP Internal Medicine Adolescent Medicine; Visit Provider Nurse Practitioner Family
DX: Z00.00 Encounter for general adult medical examination without abnormal findings (principal); E11.69 Type 2 diabetes mellitus with other specified complication; E03.9 Hypothyroidism, unspecified; E53.8 Deficiency of other specified B group vitamins; E55.9 Vitamin D deficiency, unspecified
CPT/HCPCS: 36415; 80053; 80061; 82043; 82306; 82570; 82607; 83036; 84443; 85025

== ENCOUNTER 2024-09-14 12:45 | Outpatient (CLI) | payer BC, SELFPAY ==
--- OUTSIDE RECORDS SUMMARY | 2024-09-14 12:49 | XMS_ITS | Clinical Summary ---
Author Organization [facility] yste Address [address] [place] [address] Care Team Providers Care Ore Puncher Name Role Phone Unavailable Primary Care Provider Unavailabl e Social History Tobacco Use Types Packs/Day Years Used Date Smoking Tobacco: Never Assessed Abuse Screen Answer Date Recorded Unsafe at Home or Work/School Not on file Feels Threatened by Someone? Not on file 11/2022 Does Anyone Keep You from Co ntacting Others or Doint Things Outside the Home? Not on file 11/17/2022 Physical Sign of Abuse Present Not on file 1 Housing Stability Answer Date Recorded Current Living Arrangements Not on file 11/08 Potentially Unsafe Housing Conditions Not on bill e 11/17/2022 Family and Community Support Answer Jose Enrique e Recorded Help with Day-to-Day Activities Not on file 11/17/2022 Lonely or Isolated Not on file 11/17/2022 Employment Answer Date Recorded Do you want help finding or keeping work or a cl b? Not on file 11/17/2022 Disabilities Answer Date Recorded Concentrating, Remembering, or Making Decisions Difficulty Not on file 11/17/2022 Doing Errands Independently Difficulty Not on fi le 11/17/2022 Education Answer Date Recorded Help with school or training? Not on file Preferred Language Not on file 11/17/2022 Comments Unknown Sex and Gender Information Value Date Recorded Sex Assigned at Not on file Legal Sex Female 1:40 PM EDT Gender Identity Not on file Sexual Orientation Not on file Plan of Treatment Health Maintenance Due Date Last Done Comments ANNUAL PHYSICAL 1972 Annual Gynecologic Pelvic and Breast Exam 1972 HEPATITIS C SCREENING 1972 TDAP/TD VACCINES (1 - Tdap) 11/06/1991 MAMMOGRAM 2012 COLOGUARD 2017 COLON CANCER SCREENING 5 YEAR SIGMOIDOSCOPY 2017 COLONOSCOPY [address] CANCER SCREENING 2017 CT COLONOGRAPHY 2017 FECAL OCCULT BLOOD TEST 2017 FIT Testing (1 year) 2017 Pneumococcal Vaccine 50+ (1 of 1 - PCV) 2022 ZOSTER VACCINE (1 of 2) 2022 COVID-19 Vaccine (1 - 2023- season) 2023 INFLUENZA VACCINE 11/08/2024
[2024-09-14 13:31] LABS: Albumin Level 4.0 g/dl (3.5-5.0); Chloride 103 mmol/L (98-107); Potassium 4.4 mmoL/L (3.5-5.1); Sodium 134 mmol/L (136-145)
[2024-09-14 13:33] LABS: Blood Urea Nitrogen 12 mg/dl (7-17); Creatinine,Serum 0.80 mg/dl (0.52-1.04); Estimated Glomerular Filt Rate 76 ml/min (>60); GFR (African American) 92 ML/MIN (>60)
[2024-09-14 13:34] LABS: Alanine Aminotransferase 13 U/L (12-78); Albumin/Globulin Ratio 1.5 (1.1-1.8); Alkaline Phosphatase 114 U/L (38-126); Anion Gap 10.4 mEq/L (5-15); Aspartate Amino Transferase 18 U/L (14-36); Bilirubin,Total 0.6 mg/dl (0.2-1.3); Calcium 9.3 mg/dl (8.4-10.2); Carbon Dioxide 25 mmol/L (22.0-30.0); Cholesterol 170 mg/dl (140-200); Globulin 2.7 g/dL (1.3-3.2); Glucose 117 mg/dl (74-100); HDL Cholesterol 69 mg/dl (40-60); Total Protein,Serum 6.7 g/dl (6.3-8.2); Triglycerides 95 mg/dl (30-150)
[2024-09-14 14:34] LABS: Hemoglobin A1C 6.2 % (4.0-6.0)
== END 2024-09-14 23:59 | disposition home or self-care (01) ==
PROVIDERS: PCP Nurse Practitioner Family; Visit Provider Nurse Practitioner Family
DX: E11.69 Type 2 diabetes mellitus with other specified complication (principal); E78.5 Hyperlipidemia, unspecified
CPT/HCPCS: 36415; 80053; 80061; 83036

== ENCOUNTER 2024-09-25 15:55 | Outpatient (CLI) | payer BC, SELFPAY ==
--- OUTSIDE RECORDS SUMMARY | 2024-09-25 15:57 | XMS_ITS | Clinical Summary ---
Author Organization [facility] yste Address [address] [place] [address] Care Team Providers Care Underwriter Mortgage Loan Name Role Phone Unavailable Primary Care Provider [...]
--- NOTE | 2024-09-25 16:00 | US_ITS ---
PROCEDURE: US TRANSVAGINAL CLINICAL INDICATION: Abrnormal bleeding COMPARISON: US US TRANSVAGINAL from 09/30/2021 FINDINGS: Transvaginal sonographic images of the pelvis were obtained. UTERUS: 7.3cm x 3.8 cmx 4.0cm anteverted with a combined endometrial thickness of 3.4mm. There are hyperechoic areas within the anterior myometrium. There appears to be a small calcified intramural fibroid in the anterior fundus measuring 0.7 cm x 0.7 cm x 1.0 cm There is a small nabothian cyst in the cervix. LEFT OVARY: 1.8 cmx1.3cmx0.9cm with a volume of 1.1ml. Left ovary is difficult to visualize. RIGHT OVARY: 2.6 cmx 1.5cmx0.6 cm with a volume of 1.2ml. Both ovaries are seen and appear normal. Doppler flow to both ovaries are seen. There is no fluid in the cul-de-sac. IMPRESSION: 1. Anteverted uterus normal in shape and size. The endometrium is thin measuring 3.4 mm. 2. Within the anterior myometrium there appears to be a 1 cm calcified fibroid. 3. Both ovaries are seen and appear normal. The left ovary is more difficult to visualize. 4. No fluid in the cul-de-sac. Dictated by: Loco Durham MD 09/26/2024 06:51 Loco Durham MD in OV 09/26/2024 06:51
--- NOTE | 2024-09-25 16:30 | MM_ITS ---
PROCEDURE INFORMATION: Exam: MG Bilateral Screening 3D Mammography Exam date and time: 09/25/2024 4:14 PM Age: 53 years old Clinical indication: Screening. Her mother had breast cancer. TECHNIQUE: Imaging protocol: Bilateral Screening tomosynthesis and 2D mammography including computer-aided detection (CAD) when performed. COMPARISON: 1. MG MM DIG SCREENING MAMM BI W/CAD 07/22/2023 12:51 PM 2. MG MM DIG SCREENING MAMM BI W/CAD 07/03/2022 1:06 PM 3. MG MM DIG SCREENING MAMM BI W/CAD 06/26/2021 3:33 PM FINDINGS: MAMMOGRAPHY: Breast composition: The breasts are almost entirely fatty. Mass: None. Architectural distortion: None. Calcifications: No suspicious calcifications. Asymmetric density: None. Skin thickening: None. Axillary adenopathy: None. IMPRESSION: No mammographic evidence of malignancy. Annual screening is recommended unless otherwise clinically indicated. ASSESSMENT: BI-RADS Category 1: Negative.
== END 2024-09-25 23:59 | disposition home or self-care (01) ==
LOC: RAD 15:55
PROVIDERS: PCP Nurse Practitioner Family; Visit Provider Nurse Practitioner Obstetrics & Gynecology
DX: Z12.31 Encounter for screening mammogram for malignant neoplasm of breast (principal); D25.1 Intramural leiomyoma of uterus; R92.313 Mammographic fatty tissue density, bilateral breasts
CPT/HCPCS: 76830; 77063; 77067

== ENCOUNTER 2024-10-02 16:03 | Outpatient (CLI) | payer BC, SELFPAY ==
--- OUTSIDE RECORDS SUMMARY | 2024-10-02 16:06 | XMS_ITS | Clinical Summary ---
Author Organization [facility] yste Address [address] [place] [address] Care Team Providers Care Staffing Rn Name Role Phone Unavailable Primary Care Provider [...]
[2024-10-04 11:13] LABS: FSH 4.2 mIU/mL (.); LH 3.2 mIU/mL (.)
== END 2024-10-02 23:59 | disposition home or self-care (01) ==
LOC: LAB 16:04
PROVIDERS: PCP Internal Medicine Adolescent Medicine; Visit Provider Nurse Practitioner Obstetrics & Gynecology
DX: R53.83 Other fatigue (principal)
CPT/HCPCS: 36415; 82670; 83001; 83002